=== PATIENT | female | born 2000 | race African-American/Black ===

== ENCOUNTER 2023-10-13 09:07 | Emergency (ER) | payer MEDICAID ==
[~2023-10-13] VITALS: Ht 167.6 cm; Wt 72.0 kg
[2023-10-13 09:09] VITALS: BP 147/89; PULSE 78; RESP 16; TEMP 98.4; O2SAT 100
== END 2023-10-13 10:02 | disposition home or self-care (01) ==
LOC: ER 09:07
DX: F41.9 Anxiety disorder, unspecified (principal)
CPT/HCPCS: 99283